=== PATIENT | female | born 1975 | race Caucasian/White ===

== ENCOUNTER 2016-10-30 09:29 | Emergency (ER) | payer OTHER ==
[2016-10-30 09:45] VITALS: BP 131/91
--- NOTE | 2016-10-30 10:29 | UC ---
Respiratory Complaint HPI - HPI Summary HPI Summary: FOUR DAYS FEVER COUGH, BOYFRIEND HAS HAD SYMPTOMS FOR A WEEK AND HAD RECENTLY BEEN PUT ON ANTIBIOTICS, CONCERNED THAT SHE MAY HAVE SAME CONDITION. - History of Current Complaint Chief Complaint: UCRespiratory Stated Complaint: URI Time Seen by Provider: 10/30/16 09:45 Hx Obtained From: Patient Hx Last Menstrual Period: on a "pill" Onset/Duration: Gradual Onset, Lasting Days, Still Present Severity Initially: Mild Severity Currently: Mild Character: Cough: Productive Aggravating Factors: Deep Breaths, Recumbent Position Associated Signs And Symptoms: Positive: Wheezing, URI, Nasal Congestion - Risk Factors Pulmonary Embolism Risk Factors: Negative Cardiac Risk Factors: Negative Pseudomonas Risk Factors: Negative Tuberculosis Risk Factors: Negative - Allergies/Home Medications Allergies/Adverse Reactions: Allergies Allergy/AdvReac Type Severity Reaction Status Date / Time No Known Allergies Allergy Verified 02/24/15 14:52 Home Medications: Home Medications Ibuprofen [Advil] 600 mg PO 10/30/16 [History] Levothyroxine TAB* [Synthroid TAB*] 25 mcg PO 0800 10/30/16 [History Confirmed 10/30/16] PMH/Surg Hx/FS Hx/Imm Hx Previously Healthy: Yes Endocrine History Of: Denies: Diabetes, Thyroid Disease Cardiovascular History Of: Denies: Cardiac Disorders, Hypertension Respiratory History Of: Denies: COPD, Asthma GI/ History Of: Denies: Ulcer Cancer History Of: Denies: Breast Cancer - Surgical History Surgical History: None - Family History Known Family History: Negative: Respiratory Disease - Social History Occupation: Employed Full-time Lives: With Family Alcohol Use: Daily Substance Use Type: Marijuana Substance Use Comment - Amount & Last Used: daily Smoking Status (MU): Light Every Day Tobacco Smoker Type: Cigarettes Amount Used/How Often: 1/4 PPD Length of Time of Smoking/Using Tobacco: 30+ YEARS Cessation Counseling: Patient Advised to Stop Review of Systems Constitutional: Negative Skin: Negative Eyes: Negative ENT: Nasal Discharge Respiratory: Cough Cardiovascular: Negative Gastrointestinal: Negative Genitourinary: Negative Motor: Negative Neurovascular: Negative Musculoskeletal: Negative Neurological: Negative Psychological: Negative All Other Systems Reviewed And Are Negative: Yes Physical Exam Triage Information Reviewed: Yes Appearance: Well-Appearing, No Pain Distress, Well-Nourished Vital Signs: Initial Vital Signs Temp 97.8 F 10/30/16 09:41 Pulse 53 10/30/16 09:41 Resp 18 10/30/16 09:41 BP 131/91 10/30/16 09:41 Pulse Ox 99 10/30/16 09:41 Vital Signs Reviewed: Yes Eye Exam: Normal ENT Exam: Normal ENT: Positive: Normal ENT inspection, Hearing grossly normal, Pharynx normal, TMs normal Dental Exam: Normal Neck exam: Normal Neck: Positive: Supple, Nontender, No Lymphadenopathy Respiratory Exam: Normal Respiratory: Positive: Chest non-tender, Lungs clear, Normal breath sounds, No respiratory distress, No accessory muscle use Cardiovascular Exam: Normal Cardiovascular: Positive: RRR, No Murmur Abdominal Exam: Normal Abdomen Description: Positive: Nontender, No Organomegaly Musculoskeletal Exam: Normal Musculoskeletal: Positive: Strength Intact, ROM Intact Neurological Exam: Normal Psychological Exam: Normal Psychological: Positive: Normal Response To Family Skin Exam: Normal UC Diagnostic Evaluation - Laboratory O2 Sat by Pulse Oximetry: 99 Respiratory Course/Dx - Differential Dx/Diagnosis Differential Diagnosis/HQI/PQRI: Asthma, Sinusitis Provider Diagnoses: BRONCHITIS Discharge - Discharge Plan Condition: Stable Disposition: HOME Prescriptions: Azithromycin TAB* [Zithromax TAB (Z-JADA) 250 mg #6 tabs] 250 mg PO DAILY #6 tab Patient Education Materials: Acute Bronchitis (ED) Forms: *Work Release Referrals: Anam Thompson MD [Primary Care Provider] -
== END 2016-10-30 10:29 | disposition home or self-care (01) ==
LOC: UCEAST 09:29
DX: J40 Bronchitis, not specified as acute or chronic (principal); F12.90 Cannabis use, unspecified, uncomplicated
CPT/HCPCS: 99212; G0463

== ENCOUNTER 2017-03-27 08:52 | Emergency (ER) | payer OTHER ==
--- NOTE | 2017-03-27 09:13 | UC ---
Throat Pain/Nasal Ulises HPI - HPI Summary HPI Summary: 41 y/o female presents to the urgent care c/o sore throat since this morning. Pt reports his pain is 6/10. She states She has difficulty swallowing solid foods and last week , she had an endoscopy to r/o esophageal strictures. She also had X-ray series this past Sunday. She also thinks this can be the cause of her throat irritation, but she wants to make sure it is not strep/ Pt denies Fever, SOB, chest pain, N/V/D, rash or urinary symptoms. Pt has not other complains - History of Current Complaint Chief Complaint: UCRespiratory Stated Complaint: SORE THROAT Time Seen by Provider: 03/27/17 09:03 Hx Last Menstrual Period: does not get - control ?: No Onset/Duration: Gradual Onset, Lasting Hours, Still Present Severity: Moderate Pain Intensity: 6 Pain Scale Used: 0-10 Numeric Associated Signs & Symptoms: Positive: Dysphagia. Negative: Sinus Discomfort, Nasal Discharge, Fever, Vomiting, Rash - Allergies/Home Medications Allergies/Adverse Reactions: Allergies Allergy/AdvReac Type Severity Reaction Status Date / Time No Known Allergies Allergy Verified 02/24/15 14:52 PMH/Surg Hx/FS Hx/Imm Hx Previously Healthy: Yes - Surgical History Surgical History: None - Family History Known Family History: Positive: None Negative: Respiratory Disease - Social History Occupation: Employed Full-time Lives: With Family Alcohol Use: Daily Substance Use Type: Marijuana Substance Use Comment - Amount & Last Used: daily Smoking Status (MU): Light Every Day Tobacco Smoker Type: Cigarettes Amount Used/How Often: 1/4 PPD Length of Time of Smoking/Using Tobacco: 30+ YEARS Review of Systems Constitutional: Negative Skin: Negative Eyes: Negative ENT: Sore Throat Respiratory: Negative Cardiovascular: Negative Gastrointestinal: Negative Genitourinary: Negative Motor: Negative Neurovascular: Negative Musculoskeletal: Negative Neurological: Negative Psychological: Negative All Other Systems Reviewed And Are Negative: Yes Physical Exam Triage Information Reviewed: Yes Appearance: Well-Appearing, No Pain Distress, Well-Nourished Vital Signs: Initial Vital Signs Temp 99.6 F 03/27/17 08:54 Pulse 68 03/27/17 08:54 Resp 16 03/27/17 08:54 Pulse Ox 99 03/27/17 08:54 Vital Signs Reviewed: Yes Eye Exam: Normal Eyes: Positive: Conjunctiva Clear - PERRLA, EOMI, fundi grossly normal ENT Exam: Normal ENT: Positive: Normal ENT inspection, Hearing grossly normal, Pharyngeal erythema - moderate erythema, no exudate, TMs normal, Tonsillar swelling. Negative: Tonsillar exudate Dental Exam: Normal Neck exam: Normal Neck: Positive: Supple, Nontender, No Lymphadenopathy Respiratory Exam: Normal Respiratory: Positive: Chest non-tender, Lungs clear, Normal breath sounds, No respiratory distress Cardiovascular Exam: Normal Cardiovascular: Positive: RRR, No Murmur, Pulses Normal Abdominal Exam: Normal Abdomen Description: Positive: Nontender, No Organomegaly, Soft. Negative: CVA Tenderness (R), CVA Tenderness (L) Bowel Sounds: Positive: Present Musculoskeletal Exam: Normal Musculoskeletal: Positive: Strength Intact, ROM Intact, No Edema Neurological Exam: Normal Psychological Exam: Normal Skin Exam: Normal Throat Pain/Nasal Course/Dx - Course Course Of Treatment: 41 y/o female presents to the urgent care c/o sore throat since this morning. Pt reports his pain is 6/10. She states She has difficulty swallowing solid foods and last week , she had an endoscopy to r/o esophageal strictures. She also had X-ray series this past Sunday. She also thinks this can be the cause of her throat irritation, but she wants to make sure it is not strep/ Pt denies Fever, SOB, chest pain, N/V/D, rash or urinary symptoms. Hx obtained. PE abnormal findings: ENT: Positive: Normal ENT inspection, Hearing grossly normal, Pharyngeal erythema - moderate erythema, no exudate, TMs normal, Tonsillar swelling. Negative: Tonsillar exudate. Most likley viral pharyngitis. Pt Rx tylenol instead of ibuprofen since Pt is in the process to r/o esophageal strictures. Pt advised increase fluid intake, rest. If symptoms do not improve to return to the urgent care or f/u with her PCP for further evaluation and treatment. Pt understood and agreed - Differential Dx/Diagnosis Differential Diagnosis/HQI/PQRI: Laryngitis, Pharyngitis, Tonsillitis, URI Provider Diagnoses: 1-Viral pharyngitis Discharge - Discharge Plan Condition: Stable Disposition: HOME Prescriptions: Acetaminophen TAB* [Tylenol TAB*] 650 mg PO Q4H PRN #30 tab PRN Reason: Sore Throat Patient Education Materials: Pharyngitis (ED) Referrals: Anam Thompson MD [Primary Care Provider] - If Needed Additional Instructions: Please take medications as instructed to alleviate sore throat. Increase fluid intake and rest. If you do not improve or if symptoms worsen either follow up with your PCP or return to the urgent care for further evaluation and treatment.
== END 2017-03-27 09:30 | disposition home or self-care (01) ==
LOC: UCEAST 08:52
DX: J02.8 Acute pharyngitis due to other specified organisms (principal); Z72.0 Tobacco use
CPT/HCPCS: 87651; 99212; G0463